=== PATIENT | male | born 1965 | race Caucasian/White ===

== ENCOUNTER 2018-01-01 07:34 | Emergency (ER) | payer OTHER ==
[~2018-01-01] VITALS: Ht 172.7 cm; Wt 89.8 kg
[~2018-01-01 07:34] MED LIST: CYCLOBENZAPRINE10 M1 PO
--- NOTE | 2018-01-01 07:55 | ED GI/GU/ABDOMINAL COMPLAINT ---
History of Present Illness General Chief Complaint: Abdominal Pain/Flank Pain Stated Complaint: RT SIDE ABDOMINAL PAIN Source: patient, family Exam Limitations: no limitations, clinical condition Vital Signs & Intake/Output Vital Signs & Intake/Output Vital Signs Date Time Temp Pulse Resp B/P B/P Pulse O2 O2 Flow FiO2 Mean Ox Delivery Rate 01/01 1020 97.0 76 20 136/74 98 Room Air 01/01 0740 97.5 67 16 149/82 99 Room Air Allergies Coded Allergies: No Known Allergies (01/27/16) Reconcile Medications Cyclobenzaprine HCl 10 MG TABLET 1 TAB PO QPM PRN muscle spasms Triage Note: 52M AWOKEN AT 6:30AM WITH "EXCRUCIATING" RLQ PAIN WHICH SUBSIDED FOR A BRIEF 15-20 MINS BUT NOW IS CONSTANT AND PAIN 8/10. DENIES FLANK PAIN OR RADIATION. +N/-V. +BM TODAY. REPORTS URINE WAS DARK THIS AM, DENIES GROSS HEMATURIA. STILL HAS APPENDIX Triage Nurses Notes Reviewed? yes HPI: 52 year old male with history of GERD presenting with colicky RLQ pain that began this morning around 6:30am. The patient describes the pain as severe, feeling like a "hard ache" in his lower right abdomen that radiates to his groin , coming and going in waves--from 10/10 at the start of the interview to 5/10 by the end of the interview. He reports chills and nausea with the pain, but denies fever or vomiting. Denies hematuria or bloody stool, reports that he has been urinating regularly, with dark urine, and having regular bowel movements with his last being this morning. (Jose M VARGAS,Noel) Past History Travel History Traveled to [place] past 21 day No Medical History Any Pertinent Medical History? see below for history Gastrointestinal: GERD Tetanus Vaccine: 01/27/16 Surgical History Surgical History: non-contributory Psychosocial History What is your primary language Greenlandic Tobacco Use: Never used Family History Hx Contributory? No (Jose M VARGAS,Noel) Psychosocial History ETOH Use: denies use Illicit Drug Use: denies illicit drug use (Bry VARGAS,Gavino Khan) Review of Systems Review of Systems Constitutional: Reports: chills, diaphoresis, malaise. Denies: fever. Respiratory: Denies: cough, short of breath. Cardiovascular: Denies: chest pain, palpitations. GI: Reports: abdominal pain, nausea. Denies: constipation, bloody stool, vomiting. Genitourinary: Denies: dysuria, hematuria. (Jose M VARGAS,Noel) Review of Systems EENTM: Reports: no symptoms. Musculoskeletal: Reports: no symptoms. Neurological/Psychological: Reports: no symptoms. Immunologic/Allergic: Reports: no symptoms. (Bry VARGAS,Gavino Khan) Physical Exam Physical Exam General Appearance: well developed/nourished, alert, awake, moderate distress Respiratory: normal breath sounds, lungs clear Cardiovascular: regular rate/rhythm Gastrointestinal: soft, tenderness (RLQ), Negative for rebound/guarding Core Measures ACS in differential dx? No Sepsis Present: No Sepsis Focused Exam Completed? No (Jose M VARGAS,Noel) Physical Exam Head: atraumatic, normal appearance Eyes: Bilateral: PERRL, EOMI. Neck: normal inspection, supple, full range of motion Back: normal inspection, normal range of motion Neurologic/Psych: no motor/sensory deficits, awake, alert, oriented x 3, normal gait, normal mood/affect (Bry VARGAS,Gavino Khan) Progress Differential Diagnosis: appendicitis, hernia, testicular torsion, ureterolithiasis Plan of Care: Orders Procedure Date/time Status COMPREHENSIVE METABOLIC PANEL 01/01 08 Complete CBC WITHOUT DIFFERENTIAL 01/01 08 Complete URINALYSIS 01/01 0741 Complete Laboratory Tests 01/01/18 0940: Urinalysis MOD H, Urine Color PINK H, Urine Clarity HAZY H, Urine pH 6.0, Ur Specific Lester 1.020, Urine Protein TRACE H, Urine Ketones NEG, Urine Nitrite NEG, Urine Bilirubin NEG, Urine Urobilinogen 0.2, Ur Leukocyte Esterase NEG, Ur Microscopic SEDIMENT EXAMINED, Urine RBC >75 H, Urine WBC 1-3 H, Ur Epithelial Cells FEW, Urine Crystals 1+ UR AC H, Urine Bacteria FEW H, Hyaline Casts RARE H, Urine Mucus RARE, Urine Hemoglobin MOD H, Urine Glucose 100 H 01/01/18 0831: Anion Gap 7, Estimated GFR > 60, BUN/Creatinine Ratio 23.0, Glucose 121 H, Calcium 9.7, Total Bilirubin 0.7, AST 30, ALT 62, Alkaline Phosphatase 50, Total Protein 7.2, Albumin 4.5, Globulin 2.7, Albumin/Globulin Ratio 1.7, CBC w Diff NO MAN DIFF REQ, RBC 4.66 L, MCV 89.5, MCH 30.9, MCHC 34.5, RDW 13.3, MPV 7.3 L, Gran % 64.8, Lymphocytes % 25.6, Monocytes % 7.2, Eosinophils % 1.9, Basophils % 0.5, Absolute Granulocytes 2.9, Absolute Lymphocytes 1.2, Absolute Monocytes 0.3, Absolute Eosinophils 0.1, Absolute Basophils 0 Initial ED EKG: none (Jose M VARGAS,Noel) Diagnostic Imaging: Viewed by Me: CT Scan. Discussed w/RAD: CT Scan. Radiology Impression: SEE BELOW Comments: PATIENT: TIARRA SCOTT PRESENT AGE: 52 PATIENT ACCOUNT NO: [id number] : 65 LOCATION: [facility] ORDERING PHYSICIAN: Noel Salguero MD SERVICE DATE: 01/01/18 EXAM TYPE: CAT - CT ABD & PELVIS W IV CONTRAST EXAMINATION: CT ABDOMEN AND PELVIS WITH CONTRAST CLINICAL INFORMATION: Right lower quadrant abdominal pain. COMPARISON: None TECHNIQUE: Multidetector volumetric imaging was performed of the abdomen and pelvis following IV administration of 95 mL of Optiray 320 intravenous contrast. Sagittal and coronal reformatted images were obtained on the technologist's workstation. DLP: 378 mGy-cm FINDINGS: LUNG BASES: The visualized lung bases are unremarkable. LIVER, GALLBLADDER, AND BILIARY TREE: Diffuse fatty infiltration of the liver. There is a subcapsular perfusion anomaly in segment 7 (series 2 image 7). There is fatty sparing along the nati hepatis. The gallbladder is unremarkable with no evidence of radiopaque gallstones, gallbladder wall thickening, or obvious pericholecystic inflammatory changes. PANCREAS: Unremarkable. SPLEEN: Unremarkable. ADRENAL GLANDS: Unremarkable. KIDNEYS AND URETERS: 1.2 cm cystic density lesion in the right mid kidney. 0.5 mm cystic density lesion in the left mid kidney. Mild right hydronephrosis. 2 mm partially obstructing calculus mid right ureter at the level of L3-L4. No other definite renal calculi. BLADDER: Unremarkable. GASTROINTESTINAL TRACT: The small bowel is normal in caliber. The appendix is normal. Mild diverticulosis of the descending and sigmoid colon without evidence of diverticulitis. ABDOMINAL WALL: No discrete hernia. LYMPH NODES: Normal. VASCULAR: Mild atherosclerosis. No aneurysm. PELVIC VISCERA: The prostate and seminal vesicles are unremarkable. OSSEOUS STRUCTURES: Mild degenerative changes in the lower lumbar spine. IMPRESSION: 2 mm partially obstructing calculus in the mid right ureter with mild hydronephrosis. DICTATED BY: Tucker Alba MD DATE/TIME DICTATED:01/01/18950 COMPUTER FORENSIC SPECIALIST:DANIEL DATE/TIME TRANSCRIBED:01/01/18950 CONFIDENTIAL, DO NOT COPY WITHOUT APPROPRIATE AUTHORIZATION. <Electronically signed in Other Vendor System> SIGNED BY: Tucker Alba MD 01/01/18 1000 (Gavino Londono MD) Departure Departure Disposition: HOME OR SELF CARE Condition: Stable Clinical Impression Primary Impression: Nephrolithiasis Secondary Impressions: Abdominal pain Qualifiers: Abdominal location: right lower quadrant Qualified Code: R10.31 - Right lower quadrant pain Referrals: Mana VARGAS,Martell Pollock (PCP/Family) Alban VARGAS,Cameron Lim Additional Instructions: Please follow-up with your primary care doctor about your recent Emergency Room visit for nephrolithiasis Departure Forms: Customer Survey General Discharge Information (Jose M VARGAS,Noel) Resident Co-Sign Statement Statement: ED Attending supervision documentation- [X] I saw and evaluated the patient. I have also reviewed all the pertinent lab results and diagnostic results. I agree with the findings and the plan of care as documented in the Resident's documentation. [X] I have reviewed the ED Record and agree with the Resident's documentation. [] Additions or exceptions (if any) to the Resident's note and plan are summarized below: [] (Bry VARGAS,Gavino Khan)
[2018-01-01 08:46] LABS: ABSOLUTE BASOPHIL COUNT 0 /CUMM (0.0-0.2); ABSOLUTE EOSINOPHIL COUNT 0.1 /CUMM (0.0-0.7); ABSOLUTE GRANULOCYTE CT 2.9 /CUMM (1.4-6.5); ABSOLUTE LYMPH COUNT 1.2 /CUMM (1.2-3.4); ABSOLUTE MONOCYTE COUNT 0.3 /CUMM (0.10-0.60); BASOPHIL % 0.5 % (0.0-2.0); EOSINOPHIL % 1.9 % (0-5); GRANULOCYTE % 64.8 % (42.2-75.2); HEMATOCRIT 41.7 % (42-52); MEAN CORPUSCULAR HGB 30.9 PG (27.0-31.0); MEAN CORPUSCULAR HGB CONC 34.5 G/DL (33.0-37.0); MEAN CORPUSCULAR VOLUME 89.5 FL (80.0-94.0); MEAN PLATELET VOLUME 7.3 FL (7.4-10.4); PLATELET COUNT 318 /CUMM (130-400); RBC DISTRIBUTION WIDTH 13.3 % (11.5-14.5); RED BLOOD CELL CT 4.66 /CUMM (4.70-6.10); WHITE BLOOD CELL COUNT 4.5 /CUMM (4.8-10.8)
--- NOTE | 2018-01-01 10:00 | CT SCAN REPORT ---
EXAMINATION: CT ABDOMEN AND PELVIS WITH CONTRAST CLINICAL INFORMATION: Right lower quadrant abdominal pain. COMPARISON: None TECHNIQUE: Multidetector volumetric imaging was performed of the abdomen and pelvis following IV administration of 95 mL of Optiray 320 intravenous contrast. Sagittal and coronal reformatted images were obtained on the technologist's workstation. DLP: 378 mGy-cm FINDINGS: LUNG BASES: The visualized lung bases are unremarkable. LIVER, GALLBLADDER, AND BILIARY TREE: Diffuse fatty infiltration of the liver. There is a subcapsular perfusion anomaly in segment 7 (series 2 image 7). There is fatty sparing along the nati hepatis. The gallbladder is unremarkable with no evidence of radiopaque gallstones, gallbladder wall thickening, or obvious pericholecystic inflammatory changes. PANCREAS: Unremarkable. SPLEEN: Unremarkable. ADRENAL GLANDS: Unremarkable. KIDNEYS AND URETERS: 1.2 cm cystic density lesion in the right mid kidney. 0.5 mm cystic density lesion in the left mid kidney. Mild right hydronephrosis. 2 mm partially obstructing calculus mid right ureter at the level of L3-L4. No other definite renal calculi. BLADDER: Unremarkable. GASTROINTESTINAL TRACT: The small bowel is normal in caliber. The appendix is normal. Mild diverticulosis of the descending and sigmoid colon without evidence of diverticulitis. ABDOMINAL WALL: No discrete hernia. LYMPH NODES: Normal. VASCULAR: Mild atherosclerosis. No aneurysm. PELVIC VISCERA: The prostate and seminal vesicles are unremarkable. OSSEOUS STRUCTURES: Mild degenerative changes in the lower lumbar spine. IMPRESSION: 2 mm partially obstructing calculus in the mid right ureter with mild hydronephrosis.
[2018-01-01 10:20] VITALS: BP 136/74
== END 2018-01-01 10:51 ==
LOC: ERH 07:34
PROVIDERS: Student in an Organized Health Care Education/Training Program
DX: N20.0 Calculus of kidney (principal)
CPT/HCPCS: 74177; 81001; 96365; J0131